=== PATIENT | male | born 1975 | race Caucasian/White ===

== ENCOUNTER 2018-12-26 06:31 | Emergency (ER) | payer OTHER ==
[~2018-12-26] VITALS: Ht 175.3 cm; Wt 102.5 kg
[~2018-12-26 06:31] MED LIST: IBUP-1542 PO; MECL12.574 PO
[2018-12-26 06:38] VITALS: Ht 175.3 cm; Wt 102.5 kg
[2018-12-26] MEDS ORDERED: MECLIZINE 12.5 MG TAB PO ONE (07:30)
[2018-12-26 08:19] VITALS: BP 148/79; PULSE 79; RESP 18
== END 2018-12-26 08:19 | disposition home or self-care (01) ==
LOC: FTE 06:31
DX: R42 Dizziness and giddiness (principal)
CPT/HCPCS: 80048; 85025; 93005; Z7610; 36415